=== PATIENT | female | born 1985 | race Caucasian/White ===

== ENCOUNTER 2021-01-30 03:22 | Outpatient (CLI) | payer BC, SELFPAY ==
[2021-01-30 08:31] LABS: Anion Gap 8.9 mmol/L (3-11); BUN 11 mg/dL (7-18); CO2 29.1 mmol/L (21.0-32.0); CREATININE 0.8 mg/dL (0.55-1.02); Calcium 8.4 mg/dL (8.5-10.1); Calculated LDL 90 mg/dL (<100); Chloride 102 mmol/L (98-107); Cholesterol 179 mg/dL (<200); Glucose 94 mg/dL (74-106); HDL Cholesterol 63 mg/dL (40-60); Sodium 140 mmol/L (136-145); Triglyceride 131 mg/dL (<150)
== END 2021-01-30 03:23 | disposition home or self-care (01) ==
LOC: LBO 03:22
PROVIDERS: PCP Nurse Practitioner Family; Visit Provider Nurse Practitioner Family
DX: Z00.00 Encounter for general adult medical examination without abnormal findings (principal); Z13.220 Encounter for screening for lipoid disorders; Z13.228 Encounter for screening for other metabolic disorders
CPT/HCPCS: 36415; 80048; 80061

== ENCOUNTER 2021-12-04 03:30 | Outpatient (CLI) | payer BC, SELFPAY ==
[2021-12-04 15:03] LABS: Kit/Specimen SENT
[2021-12-04 15:08] LABS: Abs Immature Grans 0.04 10^3/uL (0.0-0.06); Absolute Basophil Count 0.03 10^3/uL (0.0-0.2); Absolute Eosinophil Count 0.07 10^3/uL (0.0-0.7); Absolute Lymphocyte Count 2.24 10^3/uL (1.2-3.4); Absolute Monocyte Count 0.71 10^3/uL (0.1-0.8); Absolute Neutrophil Count 7.87 10^3/uL (1.2-6.7); Basophils % 0.3; Eosinophils % 0.6; HCT 35.4 % (36.0-46.0); HGB 12.2 g/dL (11.2-15.7); Immature Grans % 0.4; Lymphocytes % 20.4; MCH 31.3 pg (27.0-33.0); MCHC 34.5 % (32.0-36.0); MCV 90.8 fL (80-95); MPV 9.8 fL (8.0-11.0); Monocytes % 6.5; Neutrophils % 71.8; Nucleated RBC 0 %; Platelet Count 280 10^3/uL (130-400); RDW 12.1 % (11.7-14.6); RDW-SD 40.1 fL; WBC 10.96 10^3/uL (4.4-10.8)
[2021-12-04 16:02] LABS: TSH (W/Ref FT4) 0.34 uIU/mL (0.36-3.74)
[2021-12-04 16:34] LABS: FREE T4 0.98 ng/dL (0.76-1.46)
[2021-12-04 17:49] LABS: *AMPHETAMINES SCREEN URINE Negative (Negative); *BARBITURATES SCREEN URINE Negative (Negative); *BENZODIAZEPINES SCREEN URINE Negative (Negative); Cannabinoids THC Negative (Negative); Cocaine Screen,Urine Negative (Negative); METHADONE URINE SCREEN Negative (Negative); OPIATES URINE SCREEN Negative (Negative)
[2021-12-04 17:51] LABS: Tricyclic Antidepressants Negative (Negative)
[2021-12-05 09:46] LABS: Hepatitis B Surface Ag Negative (Negative)
[2021-12-05 10:18] LABS: Hepatitis C Ab w Rflx HCV PCR Negative (Negative)
[2021-12-05 10:36] LABS: HIV-1/2 Ag & Ab Screen Negative (Negative)
[2021-12-05 11:49] LABS: Varicella IgG Antibody Positive (See Note)
[2021-12-05 11:53] LABS: Rubella IgG Ab (UVM) Positive (See Note)
[2021-12-05 22:06] LABS: Syphilis IgG w/Reflex Nonreactive (Nonreactive)
[2021-12-08 01:38] LABS: Specimen WB Whole Blood
[2021-12-09 09:44] LABS: Buprenorphine Negative ng/mL (Cutoff: 5.0); Norbuprenorphine Negative ng/mL (Cutoff: 2.5)
== END 2021-12-04 03:31 | disposition home or self-care (01) ==
LOC: LBO 03:30
PROVIDERS: PCP Nurse Practitioner Family; Visit Provider Advanced Practice Midwife
DX: Z34.91 Encounter for supervision of normal pregnancy, unspecified, first trimester
CPT/HCPCS: 80307; 81329; 86787; 86803; 86850; 86900; 86901; 87340; 87389; 84439; 84443; 85025; 86762; 86780; 87086

== ENCOUNTER 2022-01-01 10:27 | Outpatient (REF) | payer BC, SELFPAY ==
[2022-01-02 14:46] LABS: Chlamydia Result Negative (Negative); GC Result Negative (Negative)
== END 2022-01-01 10:28 | disposition home or self-care (01) ==
LOC: LBN 10:27
PROVIDERS: PCP Nurse Practitioner Family; Visit Provider Advanced Practice Midwife
DX: Z34.92 Encounter for supervision of normal pregnancy, unspecified, second trimester (principal); Z3A.14 14 weeks gestation of pregnancy
CPT/HCPCS: 87491; 87591

== ENCOUNTER → 2022-01-29 02:15 | Outpatient (CLI) | payer BC, SELFPAY ==
--- NOTE | 2022-01-29 06:49 | DI.US_ITS ---
Exam(s) US OB 2-3 TRIMESTER W MOD EXAM: US OB 2-3 TRIMESTER W MOD CLINICAL HISTORY: 18 wk anatomy survey,z34.90. TECHNIQUE: Transabdominal obstetrical ultrasound performed. COMPARISON: [facility] ULTRASOUND from 10/12/2015 FINDINGS: Transabdominal obstetrical ultrasound performed. FINDINGS: Number of fetuses: One. position: Cephalic heart rate: 153 bpm. Placental location: There is a posterior grade 1 placenta. No evidence of previa. Amniotic fluid index: Amount of fluid is within normal limits. ANATOMICAL SURVEY: Within normal limits. The face, nose and lips were not well visualized in the patient is scheduled to return on 02/06/2022 for reimaging. BIOMETRIC DATA: BPD: 4.1cm consistent with 18 weeks 3 days. HC: 15.3cm consistent with 18 weeks 2 days. AC: 12.7cm consistent with 18 weeks 2 days. FL: 2.7cm consistent with 18 weeks 2 days. Cisterna Magna: 2.7 mm Cerebellum: 1.83 cm EFW: 233 grms 46% Composite Age: 18 weeks 2 days EDC by US: 06/30/2022 IMPRESSION: 1. Single live intrauterine gestation as above. 2. Normal anatomic survey. 3. The face, nose and lips were not well visualized on this examination and the patient is sche duled to return 02/06/2022 for reimaging. DATA REPOSITORY:
== END ==
PROVIDERS: PCP Nurse Practitioner Family; Visit Provider Advanced Practice Midwife
DX: Z34.91 Encounter for supervision of normal pregnancy, unspecified, first trimester (principal)
CPT/HCPCS: 76805

== ENCOUNTER 2022-01-29 03:28 | Outpatient (CLI) | payer BC, SELFPAY ==
[2022-01-29 12:24] LABS: TSH (W/Ref FT4) 0.59 uIU/mL (0.36-3.74)
[2022-01-31 12:51] LABS: AFP 64.2 ng/mL; Calculated age at EDD 34 years; Cigarette smoking status non-Smoker; GA used in risk estimate Scan estimate; IVF Pregnancy No; Initial or repeat testing Initial testing; Insulin dependent diabetes No; Maternal Weight 151 lbs; Number of Fetuses 1; Physician Phone Number 802-748-7300; Prev Pregnancy w/NTD No; RECOMMENDED FOLLOW UP None.; Results Summary Normal risk
== END 2022-01-29 03:29 | disposition home or self-care (01) ==
LOC: LBO 03:28
PROVIDERS: Advanced Practice Midwife; PCP Nurse Practitioner Family; Visit Provider Advanced Practice Midwife
DX: O99.342 Other mental disorders complicating pregnancy, second trimester (principal); R79.89 Other specified abnormal findings of blood chemistry; F32.89 Other specified depressive episodes; Z36.89 Encounter for other specified antenatal screening; Z3A.18 18 weeks gestation of pregnancy
CPT/HCPCS: 36415; 82105; 84443

== ENCOUNTER 2022-04-09 04:14 | Outpatient (CLI) | payer BC, SELFPAY | END 2022-04-09 04:15 | disposition home or self-care (01) | LOC: LBO 04:14 | PROVIDERS: PCP Nurse Practitioner Family; Visit Provider Advanced Practice Midwife ==

== ENCOUNTER 2022-04-16 03:50 | Outpatient (CLI) | payer BC, SELFPAY ==
[2022-04-16 09:30] LABS: Abs Immature Grans 0.19 10^3/uL (0.0-0.06); Absolute Basophil Count 0.02 10^3/uL (0.0-0.2); Absolute Eosinophil Count 0.07 10^3/uL (0.0-0.7); Absolute Lymphocyte Count 2.39 10^3/uL (1.2-3.4); Absolute Monocyte Count 0.69 10^3/uL (0.1-0.8); Absolute Neutrophil Count 5.86 10^3/uL (1.2-6.7); Basophils % 0.2; Eosinophils % 0.8; HCT 32.2 % (36.0-46.0); HGB 10.8 g/dL (11.2-15.7); Immature Grans % 2.1; Lymphocytes % 25.9; MCH 30.7 pg (27.0-33.0); MCHC 33.5 % (32.0-36.0); MCV 92 fL (80-95); MPV 10.4 fL (8.0-11.0); Monocytes % 7.5; Neutrophils % 63.5; Platelet Count 232 10^3/uL (130-400); RBC 3.52 10^6/uL (3.93-5.22); RDW 12.1 % (11.7-14.6); RDW-SD 40.2 fL; WBC 9.22 10^3/uL (4.4-10.8)
[2022-04-16 09:46] LABS: Glucose,1 Hr (Glucola) 96 mg/dL (80-140)
== END 2022-04-16 03:51 | disposition home or self-care (01) ==
LOC: LBO 03:53
PROVIDERS: Advanced Practice Midwife; PCP Nurse Practitioner Family; Visit Provider Advanced Practice Midwife
DX: Z34.93 Encounter for supervision of normal pregnancy, unspecified, third trimester (principal); Z3A.29 29 weeks gestation of pregnancy
CPT/HCPCS: 36415; 82950; 85025

== ENCOUNTER → 2022-05-07 02:50 | Outpatient (CLI) | payer BC, SELFPAY ==
--- NOTE | 2022-05-07 07:00 | DI.US_ITS ---
Exam(s) US OB MIRANDA WEIGHT EXAM: US OB MIRANDA WEIGHT CLINICAL HISTORY: covid infection at 28 weeks,U07.1,z34.90. TECHNIQUE: Transabdominal obstetrical ultrasound performed. COMPARISON: US US OB F/U FACIAL/LVOT/RVOT from 02/06/2022 FINDINGS: Transabdominal obstetrical ultrasound performed. FINDINGS: Number of fetuses: One. position: Cephalic. Placental location: There is a grade 2 posterior placenta. No evidence of previa. BIOMETRIC DATA: BPD: 81 mm = 32 weeks 3 days HC: 292 mm = 32 weeks 3 days AC: 262 mm = 30 weeks 3 days FL: 56 mm = 29 weeks 4 days EFW: 1579 grms 5th% Composite Age: 31 weeks 1 day EDC: 07/08/2022 Heart Rate: 118BPM Amniotic fluid index: 14.3 cm. Visually, amount of fluid is within normal limits. IMPRESSION: 1. Single live intrauterine gestation as above. 2. Estimated weight is 1579gms. This is the 5th percentile. 3. Amniotic fluid index is 14.3 cm. Visually within normal limits. DATA REPOSITORY:
== END ==
PROVIDERS: PCP Nurse Practitioner Family; Visit Provider Advanced Practice Midwife
DX: Z86.16 Personal history of COVID-19; Z34.93 Encounter for supervision of normal pregnancy, unspecified, third trimester
CPT/HCPCS: 76816

== ENCOUNTER 2022-05-10 12:14 | Outpatient (CLI) | payer BC, SELFPAY ==
[2022-05-10 14:14] VITALS: BP 109/65; PULSE 87
--- NOTE | 2022-05-10 14:57 | W.OBNST ---
Date of service: 05/10/22 Time of Service: 14:15 NST Evaluation Reason for NST Reasons for Nonstress Test: OTHER, SEE COMMENT Reason for NST Other: IUGR Gestational Age Gestational Age in Weeks and Days: 32 Weeks and 5Days Test and Monitor Explained Test/Monitor Explained: Test Explained, Monitor Explained and Patient Verbalized Understanding Vital Signs Blood Pressure: 109/65 Pulse: 87 NST Information Date on Monitor: 05/10/22 Time on Monitor: 14:04 Date off Monitor: 05/10/22 Time off Monitor: 14:26 Total Time on Monitor: 22 NST Interventions: PO Hydration NST Evaluation Patient States Movement: Present FHR Baseline: 140 Variability: Moderate 6-25 bpm Accelerations: 15x15 Decelerations: None NST Results: Reactive Note NST Note Note: NST is reactive and reassuring. Will continue with twice weekly NST's and returns 05/14/22. Awaiting call from [facility] for appointment with them for follow up and plan. Is aware of movement and will call if any changes occur. NST Reviewed and Verified by: Jaylene Scales
[2022-05-10 14:59] VITALS: BP 109/65; PULSE 87
== END 2022-05-10 12:15 | disposition home or self-care (01) ==
LOC: BCD 12:15
PROVIDERS: PCP Nurse Practitioner Family; Visit Provider Advanced Practice Midwife
DX: O36.5930 Maternal care for other known or suspected poor fetal growth, third trimester, not applicable or unspecified (principal); Z3A.32 32 weeks gestation of pregnancy
CPT/HCPCS: 59025

== ENCOUNTER 2022-05-14 06:26 | Outpatient (CLI) | payer BC, SELFPAY | END 2022-05-14 06:27 | disposition home or self-care (01) | PROVIDERS: Visit Provider Advanced Practice Midwife ==

== ENCOUNTER 2022-06-02 04:37 | Outpatient (REF) | payer BC, SELFPAY ==
[2022-06-02 06:10] LABS: *AMPHETAMINES SCREEN URINE Negative (Negative); *BARBITURATES SCREEN URINE Negative (Negative); *BENZODIAZEPINES SCREEN URINE Negative (Negative); Cannabinoids THC Negative (Negative); Cocaine Screen,Urine Negative (Negative); METHADONE URINE SCREEN Negative (Negative); OPIATES URINE SCREEN Negative (Negative)
[2022-06-02 06:13] LABS: Tricyclic Antidepressants Negative (Negative)
[2022-06-12 10:28] LABS: Buprenorphine Negative ng/mL (Cutoff: 5.0); Norbuprenorphine Negative ng/mL (Cutoff: 2.5)
== END 2022-06-02 04:38 | disposition home or self-care (01) ==
LOC: LBN 04:37
PROVIDERS: PCP Nurse Practitioner Family; Visit Provider Advanced Practice Midwife
DX: Z34.93 Encounter for supervision of normal pregnancy, unspecified, third trimester (principal)
CPT/HCPCS: 80307; 87081

== ENCOUNTER 2022-06-14 03:52 | Outpatient (RCR) | payer BC, SELFPAY ==
[2022-06-04] MEDS: IRON SUCROSE COMPLEX 200 MG in Normal Saline 100 ML 440 MG IVPB (11:28)
[2022-06-04] MEDS: Normal Saline Flush 10 ML SYR IVP (11:28)
== END 2022-06-15 23:59 | disposition home or self-care (01) ==
LOC: INF 03:52
PROVIDERS: PCP Nurse Practitioner Family; Visit Provider Advanced Practice Midwife
DX: D64.9 Anemia, unspecified (principal)
CPT/HCPCS: 96365; J1756

== ENCOUNTER 2022-06-21 07:30 | Inpatient (IN) | payer BC, SELFPAY ==
[2022-06-21] VITALS (23 sets, daily range): BP systolic 112–151; BP diastolic 61–83; PULSE 64–98; RESP 16–18; TEMP 36.4–37.4; O2SAT 97–100
--- NOTE | 2022-06-21 07:58 | W.PM.OBHPL1 ---
Date of service: 06/21/22 Time of Service: 07:58 Assessment and Plan Assessment and plan (1) Uterine contractions: Status: Acute Assessment and plan: 1. Admit, IV access and routine labs 2. COVID screen 3. Will start PCN for GBS prophylaxis 4. Support labor and expect NVD. DERICK (2) Group B Streptococcus carrier, +RV culture, currently : Status: Acute Assessment and plan: 1. PCN prophylaxis per protocol. DERICK OB-HPI Labor/Delivery History of Present Illness Reason for Visit: Rule-out labor Chief Complaint: Uterine Contractions. BIN Calculator Estimated Delivery Date Method Current WG Current Estimate 06/29/22 LMP (Certain) 38w 6d Other Estimates 07/01/22 Ultrasound #1 38w 4d History of Present Expected Delivery Route/Plan - CNM FOB/ - Robbie Ledbetter (2nd child together) BG GBS POSITIVE - PCN during labor Specific Issues/Plan 1. Depression, takes sertraline 50 mg daily 2. Unable to breastfeed after 3 wks trying, pumped for 6+ mo's 2a. Plan LC consult after 36 wks ___ 3. Pt and FOB are vaccinated but not boosted 4. Known CF negative, SMA is negative. cfDNA low prob x5, female, AFP- nml risk 5. FOB's brother w/transposition; offered & declines [facility] level 2/MFM consult 6. TSH 0.39, T4 0.98 - repeat TSH @ 18 wks is nml, no f/up indicated 7. Limited facial views by US - repeat US 02/06- facial views normal 8. heartburn - famotidine prescribed and is helping 9. COVID+ at 28 wks, Declined Paxlovid 04/08- serum creatinine WNL 11/2021 9a. EFW/MIRANDA @ 32 wks on 05/07: EFW 1579 gms in 5th percentile, MIRANDA=14.3, doppler S/D 2.8 9b. Referred to [facility] for IUGR evalution @ 32 wks, NST 2x/wk beginning 05/10 9c. US 05/14 [facility] Cephalic 44% growth normal dopplers no additional measures required due to normally growing baby. 10. Anemia at 36 wks, start weekly iron infusions until hgb >11 Informed Consent Informed Consent: Risk,Benefits,Alternatives Discussed and Other (IV access and GBS prophylaxis, patient agrees) Review of Systems All systems reviewed & are unremarkable except as noted in HPI and below (regular uterine contractions) PFSH All Active Problems (Updated 06/21/22 @ 08:05 by Jaylene Scales CNM) Uterine contractions (Acute) Group B Streptococcus carrier, +RV culture, currently (Acute) Anemia affecting (Acute) COVID-19 affecting in third trimester (Acute) (Chronic) Generalized anxiety disorder (Chronic) Medical History (Updated 06/21/22 @ 08:05 by Jaylene Scales CNM) Group beta Strep positive (09/27/15) Low TSH level Nasal sinus congestion Surgical History S/P appendectomy Family History Mother Lupus (systemic lupus erythematosus) Father Prediabetes Sister No problems noted. Son No problems noted. Maternal Grandfather Heart disease Hyperlipidemia Maternal Grandmother No problems noted. Paternal Grandmother Lung cancer Paternal Grandmother No problems noted. Social History Smoking/Tobacco Use Status: Never Second Hand Exposure: No Smoking risk assessment performed?: Yes Alcohol Intake: former Drug use: Never Substance use type: does not use Caregiver/Support person: No Household members: spouse and children Housing: house Communication Needs: None Do you need help understanding health information?: Rarely Pets and animals: Yes Pets and animals: cat(s), dog(s) and farm animals Sexually active: Yes Do you think of yourself as: straight/heterosexual Current gender identity: female What is your relationship status?: How often do you talk on the phone with friends or family?: three or more times per week How often do you get together with friends or relatives?: once per week Do you belong to any clubs or organized social groups?: no Panel score (0-1 are the most socially isolated patients): 2 What type of physical activity do you participate in: bicycling Duration: 30-45 minutes/day Frequency: 1-2 times per week Seatbelt use: always Helmet use: Yes Helmet use: always Drive intox or ride w/intox tractor trailer truck driver: No Female Reproductive History Menstrual control method: pills History History 2 Para 1 Hx # Term Pregnancies 1 Multiple births 0 Hx # Pregnancies 0 Ectopic pregnancies 0 AB induced 0 Hx Number of Living Children 1 AB spontaneous 0 Past Pregnancies Del. Date GA/Weeks # Preg Succ Route Wgt Sex Labor Lgth Anesthesia Location Prov Complic 10/14/15 41 No vaginal 6 lb 9 oz Male 12 hrs [facility] Delivery Date: 10/14/15 Last Updated by: Jaylene Dubose CNM IOL postdates, pitocin, back labor, unmedicated except for nitrous, nml [place]. GBS Meds Allergies and Home Medications Allergies Allergy/AdvReac Type Severity Reaction Status Date / Time Sulfa (Sulfonamide Allergy Intermediate Skin Rash Verified 06/14/22 14:01 Antibiotics) Home Medications Medication Instructions Recorded Confirmed Type acetaminophen 325 mg tablet 650 mg PO Q4H PRN PRN 10/17/15 06/14/22 Rx (Tylenol) prenat.vits,dionne,[id number]-[id number] 1 tab PO DAILY 12/04/21 06/14/22 History sertraline 50 mg tablet 50 mg PO DAILY #90 tabs 12/25/21 06/14/22 Rx famotidine 20 mg tablet 20 mg PO DAILY GERD #30 tabs 02/26/22 06/14/22 Rx iron sucrose 200 mg iron/10 mL 200 mg (10 mL) IV QWEEK #50 mL 06/01/22 06/14/22 Rx intravenous solution Exam Constitutional Constitutional: mild distress (working well with contractions) and average body habitus Detailed Labor and Delivery Exam Dilation: 4 Effacement (%): 80 station: -1 Position: ROP Cervix position: posterior Consistency: soft Lau Score: Cervical Points Exam 0 1 2 3 Dilation Closed 1-2cm 3-4 cm 5-6cm Effacement 0-30% 40-50% 60-70% 80% Consistency Firm Medium Soft Station -3 -2 -1,0 +1,+2 Position Posterior Mid Anterior LAU Score(Cervical Ripeness Score): 10 Amniotic Membrane Status: Intact Contraction Frequency(min): 3 Contraction Duration(sec): 60-90 Contraction Intensity: Moderate/Strong Fetus A Heart Rate Baseline: 145 Monitor Accelerations: 10 X 10 Monitor Decelerations: Variable Variability: Moderate (6-25 BPM) Categories: Category II (Will start IV for GBS prophylaxis and continue to observe) Est. Weight: 6 lb 8 oz HEENT Exam HEENT Exam: Normal Neck Exam Neck Exam: Normal (visual exam) Chest/Brest/Axilla Exam Chest Exam: Normal Breast Exam Breast Exam: Not Done Respiratory Exam Respiratory Exam: Normal Cardiovascular Exam Cardiovascular Exam: Normal Abdominal Exam Abdominal Exam: Normal Rectal Exam Rectal Exam: Not Done Exam Exam: Normal Extremities Exam Extremities Exam: Normal Back/Spine/Pelvis Exam Pelvis Adequate: Yes (proven to 6lb9oz) Skin Exam Skin Exam: Normal Neurological Exam Neurological Exam: Normal Psychiatric Exam Psychiatric Exam: Normal Results Results Group Beta Strep: Positive Blood Type: A+ Rubella Status: Immune Varicella Immunity: Immune Lab Results: GC/CT neg, syphilis neg, HIV neg, Hep B and C neg, CF neg, SMA neg, Panorama low risk female, second trimester AFP for ONTD normal risk, 1 hour glucose 96 Risk Assessment Risk for Shoulder Dystocia Historical/Initial OB: NEGATIVE FOR: Pelvic Abnormality, Pre- BMI>30, Previous Shoulder Dystocia or Previous Macrosomia 40 Weeks: NEGATIVE FOR: EFW> 4500 gms, Maternal Weight Gain >40lb or Post Dates Delivery Plan @ 36wks: spont labor, Delivery Plan @ 40 wks: NVD KH Risk for Pre-Eclampsia Date Initiated/Initials: not indicated, jk Yes, if one or more: NEGATIVE FOR: Hx Pre-E/Gest HTN, Chronic HTN, Multiple Gestation, Pre-gestational DM, Renal Disease, Systemic Lupus or APA Syndrome Yes, if 2 or more: NEGATIVE FOR: Nulliparity, Age>= 35 yrs, >10yr btwn pregnancies, BMI>30, ethinicty, Mother/Sister w/ Pre-E or Previous IUGR Risk for Post- Hemorrhage Initial: NEGATIVE FOR: Multiple Gestation, Previous PPH, Known Clotting Deficiency, Grand Multiparity or Anticoagulation At Risk?: No Interventions: hgb 9.3 at 36 wks, begin iron infusions weekly until hgb >11 Date/Initials: 06/21/22 KH Risks Reviewed Risks Reviewed Upon Admission: Yes
[2022-06-21 08:08] LABS: HCT 36.2 % (36.0-46.0); HGB 12.5 g/dL (11.2-15.7); MCH 30.6 pg (27.0-33.0); MCHC 34.5 % (32.0-36.0); MCV 89 fL (80-95); Platelet Count 208 10^3/uL (130-400); RBC 4.08 10^6/uL (3.93-5.22); RDW 13.4 % (11.7-14.6); RDW-SD 43.2 fL; WBC 14.33 10^3/uL (4.4-10.8)
[2022-06-21] MEDS: Normal Saline Flush 10 ML SYR IVP ×2 (08:35→11:02)
[2022-06-21] MEDS: Lactated Ringers 1,000 ML 999 ML IV (08:46)
[2022-06-21] MEDS: Penicillin G POT. 5,000,000 UNITS in Normal Saline 100 ML 200 UNITS IVPB (08:47)
[2022-06-21 08:49] LABS: Source Nasal/Nares
[2022-06-21 09:22] LABS: COVID-19 PCR Negative (Negative)
--- NOTE | 2022-06-21 09:46 | W.PM.OBNL1 ---
Date of service: 06/21/22 Time of Service: 09:47 Informed Consent Informed Consent: Risk,Benefits,Alternatives Discussed and Other (IV access and GBS prophylaxis, patient agrees) Contractions Monitor Mode: Palpation (strong on palpation) Fetus A Amniotic Membrane Status: Intact Assessment and Plan Assessment and plan (1) Uterine contractions: Status: Acute Assessment and plan: 1. Working well with contractions, will continue present management and reassess as indicated. Objective Abnormal lab results 06/21/22 Range/Units 07:58 WBC 14.33 H (4.4-10.8) 10^3/uL Temp Pulse Resp BP 97.5 F L 64 16 121/73 06/21/22 08:20 06/21/22 08:20 06/21/22 08:20 06/21/22 08:20 Laboratory Results WBC 14.33 10^3/uL (4.4-10.8) H 06/21/22 07:58 RBC 4.08 10^6/uL (3.93-5.22) 06/21/22 07:58 Hgb 12.5 g/dL (11.2-15.7) 06/21/22 07:58 Hct 36.2 % (36.0-46.0) 06/21/22 07:58 MCV 89 fL (80-95) 06/21/22 07:58 MCH 30.6 pg (27.0-33.0) 06/21/22 07:58 MCHC 34.5 % (32.0-36.0) 06/21/22 07:58 RDW 13.4 % (11.7-14.6) 06/21/22 07:58 Plt Count 208 10^3/uL (130-400) 06/21/22 07:58 MPV 10.0 fL (8.0-11.0) 06/21/22 07:58 COVID-19 Source Nasal/Nares 06/21/22 08:08 SARS-CoV-2 (PCR) Negative (Negative) 06/21/22 08:08 Patient ABO/Rh A Positive 06/21/22 07:58 Antibody Screen NEGATIVE 06/21/22 07:58 Subjective Interval history since last seen: Patient is using multiple positions to assist with pain and is getting good relief from nitrous oxide. KH Results Hemoglobin/Hematocrit: Hgb 12.5 g/dL (11.2-15.7) 06/21/22 07:58 Hct 36.2 % (36.0-46.0) 06/21/22 07:58 Abnormal Lab Findings: Abnormal Labs 06/21/22 07:58 WBC 14.33 H
[2022-06-21] MEDS: Oxytocin 10 UNITS/ML VIAL IM (10:51)
[2022-06-21] MEDS: Oxytocin/Normal Saline 30 UNIT/500 ML BAG 95 UNITS IV (11:04)
[2022-06-21] MEDS: Lidocaine 1% Multi-Dose 20 ML VIAL IJ (11:04)
[2022-06-21] MEDS: miSOPROStol 200 MCG TAB 600 MCG SL (11:06)
--- NOTE | 2022-06-21 11:25 | OBVDS_ITS ---
Date of service: 06/21/22 Time of Service: 11:25 OB Labor/ Delivery Information Baby A Delivery Delivery Method: Spontaneaous Presentation: Cephalic Cephalic Position: Vertex Vertex Position: Right Occipital Anterior Cord Description-Baby A: 3 Vessels and Clamped/Cut (after 90 seconds of delayed cord clamping) Amniotic Fluid: Meconium (ruptured just before ) Estimated Blood Loss: QBL 800 Delivery Outcome: Liveborn Infant Transferred: Remains with Mother Note: Rupa presented for labor evaluation approximately 1730 with complaint of regular contractions beginning at 0500. She progressed well in labor with initial tracing CAT II due to variable decelerations which resolved with IV hydration and position changes and CAT I was noted. At that time we changed to intermittent auscultation for remainder of labor which remained reassuring. She progressed to urge to push and complete dilation at 1024 and pushed with good effort. SROM at 1036 for meconium stained fluid noted. Baby girl Dayday delivered RIP over intact perineum but 2nd degree right vaginal laceration at 1048. Baby was placed skin to skin. score 7 at 1 minute and 8 at 5 minutes. 10 units pitocin was given IM after delivery of baby. Placenta delivered spontaneously at 1057, intact. Fundus firmed to U-1 with massage but with release of fundal massage she had uterine atony and IV pitocin was given as well as 600 mcg of misoprostol SL. Uterine tone improved and laceration was repaired with 1% lidocaine with 3.0 Chromic suture in usual fashion. QBL 800cc. Sponge, needle and instrument count are correct. Mother and baby are in satisfactory condition. Rupa plans to breast feed her baby. They are uncertain of contraception plan. Baby's weight 5lb 14.4oz. Expect normal PP course and discharge in 24-48 hours. Providers Nurse Ice Cream Shop Associate: Jaylene Scales Nurse: Chepe Cleary Nurse: Shannon Denton Labor/Delivery Information Number of Babies in Womb: 1 Steroids Given: None Group Beta Strep: Positive Antibiotics Administered: Yes Number of Doses of Antibiotics: 1 Rubella Status: Immune Blood Type: A+ Varicella Immunity: Immune Medication in Delivery: none Shoulder Dystocia: No Stages of Labor Onset of Labor Date: 06/21/22 Onset of Labor Time: 05:00 Complete Dilatation Date: 06/21/22 Complete Dilatation Time: 10:24 Labor - Stage 1 Duration: 0 minutes ROM Baby A: 06/21/22 ROM Baby A: 10:36 ROM Total Time- Baby A: [id number] Delivery Date-Baby A: 06/21/22 Infant Delivery Time-Baby A: 10:48 Labor Stage 2 Duration: 24 minutes Placenta Delivery Date-Baby A: 06/21/22 Placenta Delivery Time-Baby A: 10:57 Labor-Stage 3 Duration: 9 minutes Total Length of Labor-Baby A: 5 hours and 48 minutes Placenta Status: Delivered Baby A Gender: Female Gestational Status: Early Term (37-38.6 wks) Gestational Age in Weeks/Days: 38 Weeks and 5 Days Score-1 Minute Interval(Baby A) Heart Rate-1 minute: 100 BPM or Greater Respiratory Effort- 1 minute: Slow Respiration/Weak Cry Muscle Tone-1 minute: Minimal Flexion/Extension Reflex Response-1 minute: Prompt Response Color-1 minute: Bluish Hands or Feet Total Score-1 minute: 7 Score-5 Minute Interval(Baby A) Heart Rate- 5 minute: 100 BPM or Greater Respiratory Effort-5 minute: Slow Respiration/Weak Cry Muscle Tone-5 minute: Active Movement Reflex Response-5 minute: Prompt Response Color-5 minute: Bluish Hands or Feet Total Score- 5 minute: 8
[2022-06-21] MEDS: Dibucaine 1% 28 GM TUBE TP (12:42)
[2022-06-21] MEDS: Hamamelis Leaf/Glycerin 100 EACH BOX PR (12:43)
[2022-06-21] MEDS: Ibuprofen 600 MG TAB PO ×2 (12:45→23:23)
[2022-06-21] MEDS: Docusate Sodium 100 MG CAP PO ×2 (12:45→22:01)
[2022-06-21] MEDS: Acetaminophen 325 MG TAB 650 MG PO ×2 (12:45→23:23)
--- NOTE | 2022-06-21 15:40 | OBPPV_ITS ---
Date of service: 06/21/22 Time of Service: 15:40 Assessment and Plan Assessment and plan (1) care following vaginal delivery: Status: Acute Assessment and plan: 1. Will give Methergine 0.2 mg PO every 6 hours for 4 doses 2. Reviewed with patient that if bleeding increases or she continues to pass large clots that it is possible that D&C would be indicated. Verbalizes understanding 3. will reassess in 1 hour or prn. Subjective Subjective Interval history: race and sports book writer called to room due to patient passing clot while out of bed to BR. She did not have free flow prior to being up to void and none after. VS stable. Patient is feeling well. Fundus firm at U and minimal flow noted. Will start methergine 0.2mg PO every 6 hours for 4 doses. KH Exam Physical Exam Vital signs: Temp Pulse Resp BP Pulse Ox 99.3 F 83 16 118/66 98 06/21/22 14:12 06/21/22 14:12 06/21/22 14:12 06/21/22 14:12 06/21/22 11:45 Vital Signs Reviewed: Yes Constitutional Constitutional: no acute distress HEENT Exam HEENT Exam: Normal Respiratory Exam Respiratory Exam: Normal Cardiovascular Exam Cardiovascular Exam: Normal Abdominal Exam Abdomen: Other (fundus firm at U, non tender) Fundal Exam Fundus: Below Umbilicus and Firm Rectal Exam Rectal Exam: Not Done Exam Perineum: Normal and Repair Intact Extremities Exam Extremity Exam: Normal Neurological Exam Neurological Exam: Normal Psychiatric Exam Psychiatric Exam: Normal Results Hemoglobin/Hematocrit: Hgb 12.5 g/dL (11.2-15.7) 06/21/22 07:58 Hct 36.2 % (36.0-46.0) 06/21/22 07:58 Abnormal Lab Findings: Abnormal Labs 06/21/22 07:58 WBC 14.33 H
--- NOTE | 2022-06-21 16:50 | W.PM.OBPNV1 ---
Date of service: 06/21/22 Time of Service: 16:50 Assessment and Plan Assessment and plan (1) care following vaginal delivery: Status: Acute Assessment and plan: 1. Stable PP condition. Continue present management and reassess in am or prn. Subjective Subjective Interval history: Feeling well. Was out of bed to BR to void without any increase in bleeding or passing of clot. Will get the first dose of PO methergine now and continue that every 6 hours for 4 doses. Plan to reassess in am or prn. Exam Physical Exam Vital signs: Temp Pulse Resp BP Pulse Ox 97.7 F 98 H 16 125/74 97 06/21/22 15:40 06/21/22 15:40 06/21/22 15:40 06/21/22 15:40 06/21/22 15:40 Vital Signs Reviewed: Yes Results Hemoglobin/Hematocrit: Hgb 12.5 g/dL (11.2-15.7) 06/21/22 07:58 Hct 36.2 % (36.0-46.0) 06/21/22 07:58 Abnormal Lab Findings: Abnormal Labs 06/21/22 07:58 WBC 14.33 H
[2022-06-21] MEDS: Methylergonovine 0.2 MG TAB PO ×2 (16:52→22:02)
[2022-06-22 00:35] VITALS: BP 113/63; PULSE 75; RESP 18; TEMP 37.2
[2022-06-22] MEDS: Methylergonovine 0.2 MG TAB PO ×2 (03:59→10:12)
[2022-06-22 04:06] VITALS: BP 99/63; PULSE 80; RESP 18; TEMP 36.8
[2022-06-22 06:56] LABS: HCT 31.7 % (36.0-46.0); HGB 10.7 g/dL (11.2-15.7); MCH 30.4 pg (27.0-33.0); MCHC 33.8 % (32.0-36.0); MCV 90 fL (80-95); Platelet Count 198 10^3/uL (130-400); RBC 3.52 10^6/uL (3.93-5.22); RDW 13.8 % (11.7-14.6); RDW-SD 45.4 fL; WBC 19.04 10^3/uL (4.4-10.8)
--- NOTE | 2022-06-22 07:52 | W.PM.OBPNV1 ---
Date of service: 06/22/22 Time of Service: 07:53 Assessment and Plan Assessment and plan (1) care following vaginal delivery: Status: Acute Assessment and plan: 1. Normal PP course. Hgb 10.7 2. Continue present management, plan discharge 06/23/22.KH (2) Lactating mother: Status: Acute Assessment and plan: 1. Experienced breast feeding mother will encourage frequent attempts to feed today. Subjective Subjective Interval history: Rupa is feeling well this morning. Baby has been sleepy at breast since midnight but she is attempting to wake baby and put to breast every few hours. Rupa is out of bed independently and doing own ADL's without difficulty. No concerns this morning. baby status: Doing well, Rooming in and Strong Bonding Observed feeding status: Exclusively breast feeding Exam Physical Exam Vital signs: Temp Pulse Resp BP Pulse Ox 98.2 F 80 18 99/63 L 98 06/22/22 04:06 06/22/22 04:06 06/22/22 04:06 06/22/22 04:06 06/21/22 16:50 Vital Signs Reviewed: Yes Constitutional Constitutional: no acute distress, average body habitus and cooperative HEENT Exam HEENT Exam: Normal Neck Exam Neck Exam: Normal (normal visual inspection) Respiratory Exam Respiratory Exam: Normal Cardiovascular Exam Cardiovascular Exam: Normal Abdominal Exam Abdomen: Other (normal exam) Fundal Exam Fundus: Below Umbilicus and Firm Comment: small lochia noted. Rectal Exam Rectal Exam: Not Done Exam Perineum: Normal and Repair Intact Extremities Exam Extremity Exam: Normal (denies calf tenderness) and Full ROM Back/Spine/Pelvis Exam Back Exam: Normal Skin Exam Skin Exam: Normal Neurological Exam Neurological Exam: Normal Psychiatric Exam Psychiatric Exam: Normal Results Hemoglobin/Hematocrit: Hgb 10.7 g/dL (11.2-15.7) L 06/22/22 06:40 Hct 31.7 % (36.0-46.0) L 06/22/22 06:40 Abnormal Lab Findings: Abnormal Labs 06/21/22 06/22/22 07:58 06:40 WBC 14.33 H 19.04 H RBC 3.52 L Hgb 10.7 L Hct 31.7 L
[2022-06-22 08:00] VITALS: BP 111/71; PULSE 83; RESP 12; TEMP 36.8
[2022-06-22] MEDS: Ibuprofen 600 MG TAB PO ×3 (08:21→20:45)
[2022-06-22] MEDS: Acetaminophen 325 MG TAB 650 MG PO ×3 (08:21→20:45)
[2022-06-22] MEDS: Sertraline 50 MG TAB PO (08:24)
[2022-06-22] MEDS: Ferrous Sulfate 325 MG TAB PO ×2 (10:12→20:45)
[2022-06-22 15:45] VITALS: BP 108/68; PULSE 75; RESP 16; TEMP 36.7; O2SAT 97
[2022-06-22] MEDS: Docusate Sodium 100 MG CAP PO (20:45)
[2022-06-22 23:10] VITALS: BP 110/68; PULSE 72; RESP 17; TEMP 36.7; O2SAT 97
[2022-06-23 08:00] VITALS: BP 111/67; PULSE 78; RESP 12; TEMP 37
--- NOTE | 2022-06-23 09:54 | DSE_ITS ---
Date of service: 06/23/22 Time of Service: 09:54 DS: Diagnosis Discharge Diagnosis (1) care following vaginal delivery: Status: Acute Asessment and Plan: 1. Stable PP day 2. Plan discharge to home today and return to office in 2 and 6 weeks PP or prn 2. PP warning signs reviewed 3. RX for Colace, Ferrous Sulfate and Ibuprofen sent to her pharmacy. Patient is aware of how and when to take. (2) Lactating mother: Status: Acute Asessment and Plan: 1. Breast feeding well established. Experienced breast feeding Mother. Will continue present management and follow up with Pediatric provider as scheduled. Discharge Plan Disposition Patient Disposition: HOME Condition: Good Discharge Details Reason For Visit: Rule-out labor Admit Date/Time: 06/21/22 07:30 Admit Provider: Jaylene Scales Attending Provider: Jaylene Scales [facility] Course: Normal labor and vaginal of live female weighing 5lb 14oz on 06/21/22. vaginal lac repaired with 3.0 Vicryl suture. Breast feeding going well. Increased bleeding immediately PP QBL 800 cc. Received PO misoprostol, IM and IV pitocin and then 24 hours of PO methergine with good results. Home Meds and New Rx's Prescriptions: New docusate sodium [Colace] 100 mg Capsule 100 mg PO BID PRN PRNQty: 90 0RF ferrous sulfate 325 mg (65 mg iron) Tablet 325 mg PO BID Qty: 90 0RF Continued sertraline 50 mg tablet 50 mg PO DAILY Qty: 90 3RF prenat.vits,dionne,ngh-efss-vysxw Tablet 1 tab PO DAILY famotidine 20 mg tablet 20 mg PO DAILY Qty: 30 4RF acetaminophen [Tylenol] 325 MG tablet 650 mg PO Q4H PRN PRN0RF Discontinued iron sucrose 200 mg iron/10 mL solution 200 mg IV QWEEK Qty: 50 0RF Rx Instructions: administer over 30 mins, weekly until hgb >11.0 No Action ibuprofen 600 mg tablet 600 mg PO Q6H PRN (Reason: pain) Qty: 90 0RF Discharge Instructions Activity:: Activity as Tolerated Equipment/Supplies:: No Equipment Needed Diet:: As Tolerated Discharge Orders Discharge Orders: Discharge Order (Routine); Ordered 06/23/22 Ordered By: Jaylene Scales OB:DS Summary Summary Vaginal Delivery Method: Spontaneaous Laceration Description: Other Laceration Extension: Second Degree Contraception Discussed Contraception Discussed: Yes (condoms with [facility] plan for vasectomy), [place] Infant Gender-Baby A: Female weight: 5 lb 14.358 oz Disposition of Baby A: Home Status at Discharge Functional status at discharge: independent ambulation Overall status at discharge: patient is back to baseline Mental Status: mental status grossly normal Speech and Movement: speech and movement normal Mood: congruent mood Affect: normal affect Time Spent with Patient providing and/or coordinating discharge services: Less than 30 minutes Exam Physical Exam Vital signs: Temp Pulse Resp BP Pulse Ox 98.6 F 78 12 111/67 97 06/23/22 08:00 06/23/22 08:00 06/23/22 08:00 06/23/22 08:00 06/22/22 23:10 Vital Signs Reviewed: Yes Constitutional Constitutional: no acute distress, average body habitus and cooperative HEENT Exam HEENT Exam: Normal Neck Exam Neck Exam: Normal (normal visual inspection) Respiratory Exam Respiratory Exam: Normal Cardiovascular Exam Cardiovascular Exam: Normal Abdominal Exam Abdomen: Other (normal exam) Fundal Exam Fundus: Below Umbilicus and Firm Comment: small lochia noted. KH Rectal Exam Rectal Exam: Not Done Exam Perineum: Intact and Normal Extremities Exam Extremity Exam: Normal (denies calf tenderness) and Full ROM Back/Spine/Pelvis Exam Back Exam: Normal Skin Exam Skin Exam: Normal Neurological Exam Neurological Exam: Normal Psychiatric Exam Psychiatric Exam: Normal PFSH All Active Problems Lactating mother (Acute) care following vaginal delivery (Acute) Generalized anxiety disorder (Chronic) Medical History Anemia affecting COVID-19 affecting in third trimester Group B Streptococcus carrier, +RV culture, currently Group beta Strep positive (09/27/15) Low TSH level Nasal sinus congestion Uterine contractions Surgical History S/P appendectomy Family History Mother Lupus (systemic lupus erythematosus) Father Prediabetes Sister No problems noted. Son No problems noted. Maternal Grandfather Heart disease Hyperlipidemia Maternal Grandmother No problems noted. Paternal Grandmother Lung cancer Paternal Grandmother No problems noted. Social History Smoking/Tobacco Use Status: Never Second Hand Exposure: No Smoking risk assessment performed?: Yes Alcohol Intake: former Drug use: Never Substance use type: does not use Caregiver/Support person: No Household members: spouse and children Housing: house Communication Needs: None Do you need help understanding health information?: Rarely Pets and animals: Yes Pets and animals: cat(s), dog(s) and farm animals Sexually active: Yes Do you think of yourself as: straight/heterosexual Current gender identity: female What is your relationship status?: How often do you talk on the phone with friends or family?: three or more times per week How often do you get together with friends or relatives?: once per week Do you belong to any clubs or organized social groups?: no Panel score (0-1 are the most socially isolated patients): 2 What type of physical activity do you participate in: bicycling Duration: 30-45 minutes/day Frequency: 1-2 times per week Seatbelt use: always Helmet use: Yes Helmet use: always Drive intox or ride w/intox local flatbed driver: No Female Reproductive History Menstrual control method: pills History History 2 Para 1 Hx # Term Pregnancies 1 Multiple births 0 Hx # Pregnancies 0 Ectopic pregnancies 0 AB induced 0 Hx Number of Living Children 1 AB spontaneous 0 Past Pregnancies Del. Date GA/Weeks # Preg Succ Route Wgt Sex Labor Lgth Anesth esia Location Prov Complic 10/14/15 41 No vaginal 6 lb 9 oz Male 12 hrs [facility] Delivery Date: 10/14/15 Last Updated by: Jaylene Dubose CNM IOL postdates, pitocin, back labor, unmedicated except for nitrous, nml [place]. GBS DS: Data Vitals/I&O Vitals and I&O: Vital Signs Temperature 98.6 F 06/23/22 08:00 Pulse 78 06/23/22 08:00 Pulse Rhythm Regular 06/23/22 08:00 Respiratory Rate 12 06/23/22 08:00 Blood Pressure 111/67 06/23/22 08:00 Blood Pressure Mean 81 06/23/22 08:00 Pulse Oximetry 97 06/22/22 23:10 Pain Level 0 06/23/22 08:00 Intake & Output 06/22/22 06/22/22 06/23/22 11:59 23:59 11:59 Intake Total 550 / 550 Balance 550 / 550 Intake: Oral 550 / 550 Other: Urine Color Yellow Yellow Data Completed and Pending Labs on day of discharge: Labs from last 24 hours 06/23/22 09:00 Magnesium Cancelled
== END 2022-06-23 11:05 | disposition home or self-care (01) | DRG 807 ==
PROVIDERS: Admitting Provider Advanced Practice Midwife; PCP Nurse Practitioner Family; Visit Provider Advanced Practice Midwife
DX: O99.824 Streptococcus B carrier state complicating childbirth (principal); Z37.0 Single live birth; Z3A.38 38 weeks gestation of pregnancy; O99.344 Other mental disorders complicating childbirth; F32.A Depression, unspecified; O99.02 Anemia complicating childbirth; D64.9 Anemia, unspecified; F41.1 Generalized anxiety disorder; O71.4 Obstetric high vaginal laceration alone
CPT/HCPCS: 36415; 85027; 86850; 86900; 86901; 87635; 83735; J2540; J2590; J3490

== ENCOUNTER 2024-03-27 14:02 | Outpatient (REF) | payer BC, SELFPAY ==
--- NOTE | 2024-03-27 14:10 | PAPFT_PTH ---
PATIENT: Rupa Naylor LOC: [facility]#:[id number] AGE/SX: 38/F ROOM: RE03/27/[address]: Olive Rojas : 1985 BED: DIS: 03/27/2024 SPEC #: [id number] RECD: 03/27/24 15:29 STATUS: GILBERT REPhilip #: [id number] CATHLEEN: 03/27/24 14:[address]: Olive Rojas DEPT: [facility] Cytology RECD BY: Cynthia Monterroso ENTERED: 03/27/24 15:30 SP TYPE: PAPFT OTHR DR: JUAN MANUEL Sands Tissues: 1 - CX/ENDOCX FOR PAP SMEARS Procedures: PAP THIN PREP/[facility] Screening HPV DNA PROBE Comments: [id number] (HPV 16 & 18/45)
== END 2024-03-27 14:03 | disposition home or self-care (01) ==
LOC: LBN 14:02
PROVIDERS: PCP Nurse Practitioner Family; Visit Provider Obstetrics & Gynecology Gynecology
DX: Z12.4 Encounter for screening for malignant neoplasm of cervix (principal); N77.1 Vaginitis, vulvitis and vulvovaginitis in diseases classified elsewhere
CPT/HCPCS: 88142; 87624

== ENCOUNTER 2024-03-31 04:28 | Outpatient (CLI) | payer BC, SELFPAY ==
[2024-03-31 10:44] LABS: Abs Immature Grans 0.02 10^3/uL (0.0-0.06); Absolute Basophil Count 0.04 10^3/uL (0.0-0.2); Absolute Eosinophil Count 0.11 10^3/uL (0.0-0.7); Absolute Lymphocyte Count 2.98 10^3/uL (1.2-3.4); Absolute Monocyte Count 0.46 10^3/uL (0.1-0.8); Absolute Neutrophil Count 3.71 10^3/uL (1.2-6.7); Basophils % 0.5 %; Eosinophils % 1.5 %; HCT 39.5 % (36.0-46.0); HGB 13.5 g/dL (11.2-15.7); Immature Grans % 0.3 %; Lymphocytes % 40.7 %; MCH 30.4 pg (27.0-33.0); MCHC 34.2 % (32.0-36.0); MCV 89 fL (80-95); Monocytes % 6.3 %; Neutrophils % 50.7 %; Platelet Count 263 10^3/uL (130-400); RBC 4.44 10^6/uL (3.93-5.22); RDW 11.9 % (11.7-14.6); WBC 7.32 10^3/uL (4.4-10.8)
[2024-03-31 11:16] LABS: BUN 11 mg/dL (7-18); CREATININE 0.7 mg/dL (0.55-1.02); Calcium 8.9 mg/dL (8.5-10.1); Calculated LDL 114 mg/dL (<100); Chloride 103 mmol/L (98-107); Cholesterol 193 mg/dL (<200); Estimated GFR 114.88 (mL/min/1.73m2); Glucose 104 mg/dL (74-106); HDL Cholesterol 50 mg/dL (40-60); Potassium 4.1 mmol/L (3.5-5.1); Sodium 140 mmol/L (136-145); Triglyceride 147 mg/dL (<150)
[2024-03-31 19:37] LABS: HBs Antibody, Quant 6.7 mIU/mL (See Note); Hepatitis B Surface Ab Negative (See Note)
[2024-03-31 20:27] LABS: HIV-1/2 Ag & Ab Screen Negative (Negative)
== END 2024-03-31 04:29 | disposition home or self-care (01) ==
LOC: LBO 04:28
PROVIDERS: PCP Nurse Practitioner Family; Visit Provider Nurse Practitioner Family
DX: Z00.00 Encounter for general adult medical examination without abnormal findings (principal)
CPT/HCPCS: 36415; 80048; 80061; 86706; 87389; 84443; 85025